=== PATIENT | male | born 1955 | race American Indian/Alaskan Native ===

== ENCOUNTER 2016-08-30 13:51 | Emergency (ER) | payer OTHER ==
--- NOTE | 2016-08-30 15:33 | XRay Report ---
FINAL REPORT EXAM: XR FINGER(S) 2 LT HISTORY: injury/lt finger injury 3rd and 4th digits TECHNIQUE: 3 views of the left third and fourth digits. PRIORS: None FINDINGS: Overlying bandaging. Soft tissue injury on the lateral aspect of the distal third digit. No acute fracture or dislocation seen. Joint spaces are maintained. IMPRESSION: 1. Soft tissue injury of third digit.
--- NOTE | 2016-08-30 16:03 | Emergency Department Report ---
"Upper Extremity - HPI Chief Complaint: Wound/Laceration Stated Complaint: LEFT HAND INJURY Time Seen by Provider: 08/30/16 16:01 Upper Extremity: Left Middle Finger (laceration and injury from hedge |), Left Ring Finger (laceration from hedge clipper) Occurred When: Today Mechanism: Hit with Object Severity: severe (10 out of 10 and throbbing .) Symptoms: Yes Pain with Movement (left middle and fourth finger), Yes Limited Range of Movement (left middle and fourth finger), Yes Swelling (left middle and fourth finger), Yes Bruising/Ecchymosis (left middle finger), Yes Laceration or Abrasion (left middle and fourth finger), No Deformity, No Numbness, No Weakness Other History: Patient here reports that he was using hedge clipper to trim hedges today and he cut his third and fourth finger to left hand. He reports that he is having pain 10 out of 10. Reports that bleeding in and he used pressure dressing to side. Tetanus shot is not up-to-date. Denies any numbness or tingling to side. Denies any radiation of pain from finger to hand , wrist or forearm. Patient is a diabetic and take oral medication. He said his blood sugar this morning was at 126. ED Review of Systems ROS: Stated complaint: LEFT HAND INJURY Other details as noted in HPI Comment: All other systems reviewed and negative Constitutional: denies: chills, fever Respiratory: no symptoms reported Cardiovascular: denies: chest pain, palpitations, edema, syncope Gastrointestinal: denies: nausea, vomiting Musculoskeletal: arthralgia Skin: other (laceration to fingers on left hand) Neurological: denies: weakness, numbness, paresthesias, abnormal gait ED Past Medical Hx - Past Medical History Previous Medical History?: Yes Hx Hypertension: Yes Hx Diabetes: Yes Additional medical history: sinus - Surgical History Past Surgical History?: No - Family History Family history: diabetes, hypertension - Social History Smoking Status: Never Smoker Substance Use Type: None - Medications Home Medications: Home Medications Medication Instructions Recorded Confirmed Last Taken Type Ibuprofen Oral Liqd [Motrin 100 200 mg PO TID PRN 12/10/12 12/10/12 12/10/12 13: 00 History mg/5 ml] Sulfamethoxazole/Trimethoprim 1 each PO BID 12/10/12 12/10/12 12/10/12 08:00 History [Bactrim DS] 1 tablet traMADol [Ultram] 50 mg PO Q6HR PRN 12/10/12 12/10/12 12/10/12 08:00 History Acetaminophen/Codeine [Tylenol 1 tab PO Q6H PRN #15 tab 08/30/16 Unknown Rx /Codeine # 3 tab] Cephalexin [Keflex] 500 mg PO Q8HR #15 cap 08/30/16 Unknown Rx Upper Extremity Exam - Exam General: Vital signs noted. No distress. Alert and acting appropriately. This is 60-year-old male well-nourished well-developed in no acute distress. Head and Torso: Yes HEENT Abnormality (normal exam), Yes Neck Tenderness ( normal exam), Yes Chest/Lungs Abnormality (normal exam), Yes Abdominal Tenderness (normal exam), Yes Back Tenderness (normal exam) Shoulder Exam: Yes Normal Range of Motion in Shoulder, No Shoulder Tenderness, No Clavicle Tenderness, No Shoulder Deformity, No AC Joint Tenderness Arm Exam: No Arm/Humerus Tenderness, No Arm Deformity Elbow: Yes Normal Range of Motion in Elbow, No Elbow Tenderness, No Elbow Deformity Forearm: No Forearm Tenderness, No Forearm Deformity, No Pain with Pronation, No Pain with Supination Wrist: Yes Normal ROM in Wrist, No Wrist Tenderness, No Wrist Deformity, No Snuffbox Tenderness, No Pain with Axial Thumb Compression Hand: Yes Digit Tenderness (tender to palpate to left third and fourth distal phalanx. Swelling and bruising to both sides.), Yes Normal ROM in Digit(s), No Hand Tenderness, No Hand Deformity, No Digit(s) Deformity, No Tendon Dysfunction CMS Exam: Yes Broken Skin (multiple laceration to left third distal phalanx and left fourth distal phalanx), Yes Normal Distal Pulses, Yes Normal Capillary Refill, Yes Normal Distal Sensation ED Course Vital Signs 08/30/16 14:04 Temperature 98.0 F Pulse Rate 108 H Respiratory 18 Rate Blood Pressure 125/87 O2 Sat by Pulse 96 Oximetry Vital Signs 08/30/16 08/30/16 08/30/16 14:04 16:43 18:08 Temperature 98.0 F Pulse Rate 108 H 82 Respiratory 18 18 Rate Blood Pressure 125/87 O2 Sat by Pulse 96 Oximetry Vital Signs 08/30/16 08/30/16 08/30/16 14:04 16:43 18:08 Temperature 98.0 F Pulse Rate 108 H 82 Respiratory 18 18 Rate Blood Pressure 125/87 Blood Pressure [Left] O2 Sat by Pulse 96 Oximetry 08/30/16 18:28 Temperature Pulse Rate 65 Respiratory 18 Rate Blood Pressure Blood Pressure 154/79 [Left] O2 Sat by Pulse 97 Oximetry - Reevaluation(s) Reevaluation #1: 08/30/16 18:16 Patient given Percocet 5/325 2 tablets in emergency room. He was also given Boostrix 0.5 mls to update tetanus. - Laceration /Wound Repair Left Distal Finger Wound Location: upper extremity (left third distal phalanx) Wound Length (cm): 2 Wound's Depth, Shape: into muscle, irregular, flap Wound Explored: clean Irrigated w/ Saline (ccs): 300 Betadine Prep?: Yes Anesthesia: 0.5% Sensorcaine (0.5% Marcaine) Volume Anesthetic (ccs): 2 Wound Debrided: moderate Wound Repaired With: sutures Suture Size/Type: 4:0 (Ethilon) Number of Sutures: 10 Layer Closure?: Yes Deep Layer Suture Size/Type: 5:0 (Vicryl) Number Deep Layer Sutures: 3 Sterile Dressing Applied?: Yes Left Distal Palm Finger Wound Location: upper extremity (left distal third digit at palmar side) Wound Length (cm): 1 Wound's Depth, Shape: superficial, linear Wound Explored: clean Irrigated w/ Saline (ccs): 100 Betadine Prep?: Yes Anesthesia: 0.5% Sensorcaine (0.5% Marcaine) Volume Anesthetic (ccs): 0 (0.5 cc) Wound Debrided: moderate Wound Repaired With: sutures Suture Size/Type: 4:0 (Ethilon) Number of Sutures: 3 Layer Closure?: No Sterile Dressing Applied?: Yes Left Lateral Distal Finger Wound Location: upper extremity (left distal phalanx at Fort digit) Wound Length (cm): 1 (very superficial) Wound's Depth, Shape: superficial, linear Wound Explored: clean Irrigated w/ Saline (ccs): 100 Betadine Prep?: Yes Volume Anesthetic (ccs): 0 Wound Debrided: moderate Wound Repaired With: Steri-strips Number of Sutures: 4 Layer Closure?: No Sterile Dressing Applied?: Yes ED Medical Decision Making - Radiology Data Radiology results: report reviewed X-ray of left hand reveal no bony abnormalities with soft tissue swelling third digit left hand - Medical Decision Making ED course: Patient status post left hand injury at third and fourth digits. Patient with multiple laceration and arthralgia. See procedure note for laceration repair. Patient given Percocet 5/325 mg 2 tablets in emergency room for pain. He was also given Boostrix 0.5 cc intramuscularly for tetanus update. I explained to patient status post laceration repair that he will need to keep dressing on for 48 hours and to keep affected areas clean and dry and return to his primary care physician or emergency room in 7-10 days to have stitches removed. 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 I also explained to him that he needs to keep his blood sugar under control for effective healing. I informed patient on is x-ray results and he voiced understanding. Patient discharged home with his with prescription for Tylenol 3 and Keflex. I instructed him to follow up with his primary care physician in 2-3 days. Critical care attestation.: If time is entered above; I have spent that time in minutes in the direct care of this critically ill patient, excluding procedure time. ED Disposition Clinical Impression: Arthralgia of left hand Laceration of multiple sites of left hand and fingers Qualifiers: Encounter type: initial encounter Qualified Code(s): S61.412A - Laceration without foreign body of left hand, initial encounter; S61.219A - Laceration without foreign body of unspecified finger without damage to nail, initial encounter Injury of left hand Qualifiers: Encounter type: initial encounter Qualified Code(s): S69.92XA - Unspecified injury of left wrist, hand and finger(s), initial encounter Disposition: DC-01 TO HOME OR SELFCARE Is pt being admited?: No Does the pt Need Aspirin: No Condition: Stable Instructions: Suture Care (ED), Finger Laceration (ED), Skin Adhesive Care (ED) , Arthralgia (ED) Additional Instructions: Please call your primary care in mind and schedule appointment for follow-up visit in 2-3 days. Please return she her primary care or emergency room to have stitches removed in 7-10 days. keep affected areas clean and dry Please do not remove dressing in for 48 hours. Keep Blood sugars within normal range to prevent infection Please do not drive or operate heavy machinery while taking Tylenol 3 of this medication will make you drowsy. Prescriptions: Acetaminophen/Codeine [Tylenol /Codeine # 3 tab] 1 tab PO Q6H PRN #15 tab PRN Reason: Pain , Severe (7-10) Cephalexin [Keflex] 500 mg PO Q8HR #15 cap Referrals: PRIMARY CARE, [Primary Care Provider] - 2-3 Days Forms: Work/School Release Form(ED), Accompanied Note"
[2016-08-30] MEDS ORDERED: PERCOCET 5/325 PO ONE (16:20)
[2016-08-30] MEDS ORDERED: BOOSTRIX IM ONE (16:20)
[2016-08-30] MEDS ORDERED: MARCAINE 0.5% INFILTRATI ONE (16:22)
[2016-08-30] MEDS ORDERED: NACL 0.9% IR ONE (16:22)
[2016-08-30 18:29] VITALS: BP 154/79
== END 2016-08-30 18:51 | disposition home or self-care (01) ==
LOC: ED 13:51
DX: S61.215A Laceration without foreign body of left ring finger without damage to nail, initial encounter (principal); S61.213A Laceration without foreign body of left middle finger without damage to nail, initial encounter; I10 Essential (primary) hypertension; E11.9 Type 2 diabetes mellitus without complications; W45.8XXA Other foreign body or object entering through skin, initial encounter; Y93.9 Activity, unspecified; Y92.9 Unspecified place or not applicable; Y99.9 Unspecified external cause status
CPT/HCPCS: 90471; 90715

== ENCOUNTER 2018-11-03 19:17 | Inpatient (IN) | payer OTHER ==
--- NOTE | 2018-11-03 19:45 | Event Note ---
ED Screening Note ED Screening Note: pt presents for N/V/D that began today states that his vomit and diarrhea is "dark purple" no abdominal pain no CP PMHx GERD, DM, HTN, HLD takes a bhavesh 81 mg aspirin, denies any other blood thinner This initial assessment/diagnostic orders/clinical plan/treatment(s) is/are subject to change based on patients health status, clinical progression and re- assessment by fellow clinical providers in the ED. Further treatment and workup at subsequent clinical providers discretion. Patient/guardian urged not to elope from the ED as their condition may be serious if not clinically assessed and managed. Initial orders include: labs will send to the MAIN ED for further eval
[2018-11-03 20:04] LABS: Basophils # (Auto) 0.1 K/mm3 (0.0-0.1); Basophils % (Auto) 0.6 % (0.0-1.8); Eosinophils # (Auto) 0.1 K/mm3 (0.0-0.4); Eosinophils % (Auto) 0.6 % (0.0-4.3); Hematocrit 28.2 % (35.5-45.6); Hemoglobin 9.6 gm/dl (11.8-15.2); Lymphocytes # (Auto) 2.4 K/mm3 (1.2-5.4); Lymphocytes % (Auto) 24.5 % (13.4-35.0); Mean Corpuscular HGB Conc 34 % (32-34); Mean Corpuscular Volume 84 fl (84-94); Monocytes # (Auto) 0.8 K/mm3 (0.0-0.8); Monocytes % (Auto) 8.3 % (0.0-7.3); Platelet Count 202 K/mm3 (140-440); Red Blood Count 3.37 M/mm3 (3.65-5.03); Red Cell Distribution Width 14.7 % (13.2-15.2)
[2018-11-03 20:15] LABS: INR 1.1 (0.87-1.13)
[2018-11-03 20:16] LABS: Partial Thromboplastin Time 24.7 Sec. (24.2-36.6)
[2018-11-03 20:28] LABS: Alanine Aminotransferase 15 units/L (7-56); Albumin 3.8 g/dL (3.9-5); BUN/Creatinine Ratio 38; Blood Urea Nitrogen 53 mg/dL (9-20); Calcium 9.5 mg/dL (8.4-10.2); Hemolysis Index 5
--- NOTE | 2018-11-03 21:11 | Emergency Department Report ---
ED N/V/D HPI - General Chief complaint: Nausea/Vomiting/Diarrhea Stated complaint: VOMITTING, DIARRHEA, BLOODY STOOL/VOMIT, WEAK Time Seen by Provider: 11/03/18 19:42 Source: patient, family Mode of arrival: Ambulatory Limitations: No Limitations - History of Present Illness Initial comments: Patient is a 63-year-old male that presents emergency room with complaints of nausea vomiting diarrhea 3 days. Patient states for 3 days also been having coffee-ground emesis as well as melena. Patient denies abdominal pain. Patient denies fever and chills. Patient denies syncope. Patient complains of lightheaded and weakness. Patient states symptoms are better with rest and worse with movement. Patient states his nausea and vomiting are better with rest and worse with trying to intake food. MD complaint: nausea, vomiting, diarrhea -: Sudden Description of Vomiting: coffee grounds Description of Diarrhea: water, tarry Associated Abdominal Pain: No Severity: severe Consistency: constant Improves with: rest Worsens with: bowel movement, vomiting Associated Symptoms: loss of appetite, malaise, nausea/vomiting, weakness. denies: myalgias, chest pain, cough, diaphoresis, fever/chills, headaches, rash, dysuria, shortness of breath, syncope - Related Data Home Medications Medication Instructions Recorded Confirmed Last Taken Ibuprofen Oral Liqd [Motrin 100 200 mg PO TID PRN 12/10/12 12/10/12 12/10/12 13:00 mg/5 ml] Sulfamethoxazole/Trimethoprim 1 each PO BID 12/10/12 12/10/12 12/10/12 08:00 [Bactrim DS] 1 tablet traMADol [Ultram] 50 mg PO Q6HR PRN 12/10/12 12/10/12 12/10/12 08:00 Previous Rx's Medication Instructions Recorded Last Taken Type Acetaminophen/Codeine [Tylenol 1 tab PO Q6H PRN #15 tab 08/30/16 Unknown Rx /Codeine # 3 tab] cephALEXin [Keflex] 500 mg PO Q8HR #15 cap 08/30/16 Unknown Rx Allergies Allergy/AdvReac Type Severity Reaction Status Date / Time No Known Allergies Allergy Verified 11/03/18 19:21 ED Review of Systems ROS: Stated complaint: VOMITTING, DIARRHEA, BLOODY STOOL/VOMIT, WEAK Other details as noted in HPI Constitutional: weakness. denies: chills, fever Eyes: denies: eye pain, eye discharge, vision change ENT: denies: ear pain, throat pain Respiratory: denies: cough, shortness of breath, wheezing Cardiovascular: denies: chest pain, palpitations Endocrine: no symptoms reported Gastrointestinal: denies: abdominal pain, nausea, diarrhea Genitourinary: denies: urgency, dysuria Musculoskeletal: denies: back pain, joint swelling, arthralgia Skin: denies: rash, lesions Neurological: weakness, vertigo. denies: headache, paresthesias Psychiatric: denies: anxiety, depression Hematological/Lymphatic: denies: easy bleeding, easy bruising ED Past Medical Hx - Past Medical History Previous Medical History?: Yes Hx Hypertension: Yes Hx Diabetes: Yes Hx GERD: Yes Additional medical history: High Cholesterol - Surgical History Past Surgical History?: No - Family History Family history: no significant - Social History Smoking Status: Former Smoker Substance Use Type: None - Medications Home Medications: Home Medications Medication Instructions Recorded Confirmed Last Taken Type Ibuprofen Oral Liqd [Motrin 100 200 mg PO TID PRN 12/10/12 12/10/12 12/10/12 13:00 History mg/5 ml] Sulfamethoxazole/Trimethoprim 1 each PO BID 12/10/12 12/10/12 12/10/12 08:00 History [Bactrim DS] 1 tablet traMADol [Ultram] 50 mg PO Q6HR PRN 12/10/12 12/10/12 12/10/12 08:00 History Acetaminophen/Codeine [Tylenol 1 tab PO Q6H PRN #15 tab 08/30/16 Unknown Rx /Codeine # 3 tab] cephALEXin [Keflex] 500 mg PO Q8HR #15 cap 08/30/16 Unknown Rx ED Physical Exam - General Limitations: No Limitations General appearance: alert, in no apparent distress - Head Head exam: Present: atraumatic, normocephalic - Eye Eye exam: Present: normal appearance - ENT ENT exam: Present: mucous membranes moist - Neck Neck exam: Present: normal inspection - Respiratory Respiratory exam: Present: normal lung sounds bilaterally. Absent: respiratory distress - Cardiovascular Cardiovascular Exam: Present: regular rate, normal rhythm. Absent: systolic murmur, diastolic murmur, rubs, gallop - GI/Abdominal GI/Abdominal exam: Present: soft, normal bowel sounds - Rectal Rectal exam: Present: deferred - Extremities Exam Extremities exam: Present: normal inspection - Back Exam Back exam: Present: normal inspection - Neurological Exam Neurological exam: Present: alert, oriented X3 - Psychiatric Psychiatric exam: Present: normal affect, normal mood - Skin Skin exam: Present: warm, dry, intact, normal color. Absent: rash ED Course Vital Signs 11/03/18 11/03/18 11/03/18 19:23 19:43 21:12 Temperature 98.7 F 98.7 F Pulse Rate 129 H 125 H Respiratory 16 18 14 Rate Blood Pressure 105/54 105/54 Blood Pressure [Right] O2 Sat by Pulse 98 98 Oximetry 11/03/18 11/03/18 11/03/18 21:15 21:19 21:30 Temperature 98.1 F Pulse Rate 109 H 112 H 104 H Respiratory 17 15 18 Rate Blood Pressure 86/43 83/38 Blood Pressure 86/43 [Right] O2 Sat by Pulse 96 97 96 Oximetry 11/03/18 11/03/18 11/03/18 21:45 22:00 22:15 Temperature Pulse Rate 98 H 97 H 96 H Respiratory 15 22 23 Rate Blood Pressure 75/30 97/48 98/50 Blood Pressure [Right] O2 Sat by Pulse 100 98 92 Oximetry 11/03/18 11/03/18 11/03/18 22:31 22:45 23:00 Temperature Pulse Rate 102 H 91 H 96 H Respiratory 22 20 15 Rate Blood Pressure 97/58 109/52 110/50 Blood Pressure [Right] O2 Sat by Pulse 99 98 98 Oximetry 11/03/18 11/03/18 11/03/18 23:15 23:31 23:45 Temperature Pulse Rate 90 99 H 95 H Respiratory 21 19 16 Rate Blood Pressure 100/49 123/60 116/48 Blood Pressure [Right] O2 Sat by Pulse 98 99 72 L Oximetry - Reevaluation(s) Reevaluation #1: I discussed all results with patient. I discussed plan of care with patient. Patient will be admitted to the hospitalist service. 11/03/18 21:23 Reevaluation #2: Patient noted to be hypotensive. Patient was given fluids. . we will repeat CBC. I discussed all results patient. 11/03/18 21:53 0 Reevaluation #3: Blood pressures currently 97/50. Patient's blood pressure is improved with fluids. Discussed all results to patient. Discussed plan of care with patient. Patient will be admitted to the hospitalist service. Patient agrees with admission. 11/03/18 22:12 Reevaluation #4: He states she's feeling better. Patient's current blood pressure is 110/60. 11/03/18 23:13 - Consultations Consultation #1: GI paged 11/03/18 21:[address] Cline. Dr. Cline wants patient started on a PPI drip and nothing by mouth after midnight and admitted to the hospitalist service. 11/03/18 21:20 Consultation #2: Hospitalist consult for admission. Hospitalist to admit patient. 11/03/18 22:06 ED Medical Decision Making - Lab Data Result diagrams: 11/03/18 22:25 11/03/18 19:49 - Medical Decision Making Patient is a 63-year-old mellitus emergency room with complaints of nausea vomiting and diarrhea and coffee-ground emesis and melena. Patient brought over GI bleed. Patient also found to have hypotension and given fluids and his blood pressure improved. Patient typed and crossed and had a repeat CBC in the ER. Patient's labs essentially unremarkable except for anemia and elevated BUNs. Patient given fluids. Patient's blood pressure responded well to fluids. Patient admitted to the hospitalist service. GI consultation and recommendations received. - Differential Diagnosis GI bleed. Nausea vomiting and diarrhea. Melena Critical Care Time: Yes Critical care attestation.: If time is entered above; I have spent that time in minutes in the direct care of this critically ill patient, excluding procedure time. Critical Care Time: 35 minutes ED Disposition Clinical Impression: Nausea vomiting and diarrhea, Dehydration, Coffee ground emesis GI bleed Qualifiers: GI bleed type/associated pathology: unspecified gastrointestinal hemorrhage type Qualified Code(s): K92.2 - Gastrointestinal hemorrhage, unspecified Hypotension Qualifiers: Hypotension type: unspecified hypotension type Qualified Code(s): I95.9 - Hypotension, unspecified Disposition: OP ADMIT IP TO THIS HOSP Is pt being admited?: Yes Does the pt Need Aspirin: No Condition: Critical Time of Disposition: :
[2018-11-03] MEDS ORDERED: NACL 0.9% 1000 ML 1,000 ML IV ONE ×2 (21:20→22:42)
[2018-11-03] MEDS: PROTONIX 80 MG in NACL 0.9% 100 ML IV SCH (21:51)
[2018-11-03] MEDS ORDERED: TYLENOL PO PRN (22:38)
[2018-11-03] MEDS ORDERED: SODIUM CHLORIDE FLUSH SYRINGE 10 ML IV PRN (22:38)
[2018-11-03] MEDS ORDERED: MORPHINE IV PRN (22:38)
[2018-11-03] MEDS ORDERED: ZOFRAN IV PRN (22:38)
[2018-11-03 22:41] LABS: Hematocrit 22.3 % (35.5-45.6); Hemoglobin 7.6 gm/dl (11.8-15.2); Mean Corpuscular HGB Conc 34 % (32-34); Mean Corpuscular Volume 84 fl (84-94); Platelet Count 154 K/mm3 (140-440); Red Blood Count 2.67 M/mm3 (3.65-5.03); Red Cell Distribution Width 14.5 % (13.2-15.2)
[2018-11-03] MEDS ORDERED: NACL 0.9% 1000 ML 1,000 ML IV SCH (23:00)
--- NOTE | 2018-11-03 23:03 | History and Physical Report ---
History of Present Illness Date of examination: 11/03/18 Chief complaint: Nausea and vomiting History of present illness: Patient is a 63-year-old -[place] male with history of hypertension and DM2 who presented to the ED on account of 3 days history of nausea with projectile vomiting. He stated that few hours after eating some fast food, he started having severe vomiting which subsequently became bloody. He has associated passage of dark watery stool, headaches and lightheadedness. He denies abdominal pain, dysuria or frequency. No chest pain, shortness of breath, palpitation, fever, chills, syncope or loss of consciousness. No prior history of presenting complaint. Past History Past Medical History: diabetes, hypertension, hyperlipidemia Past Surgical History: No surgical history Social history: smoking (patient has a remote history of cigarette smoking. He quit in 1999. He denies alcohol or illicit drug use) Family history: diabetes (father), other (mother was diagnosed with cancer of the stomach in her 80's) Medications and Allergies Allergies Allergy/AdvReac Type Severity Reaction Status Date / Time No Known Allergies Allergy Verified 11/03/18 19:21 Home Medications Medication Instructions Recorded Confirmed Last Taken Type Ibuprofen Oral Liqd [Motrin 100 200 mg PO TID PRN 12/10/12 12/10/12 12/10/12 13:00 History mg/5 ml] Sulfamethoxazole/Trimethoprim 1 each PO BID 12/10/12 12/10/12 12/10/12 08:00 History [Bactrim DS] 1 tablet traMADol [Ultram] 50 mg PO Q6HR PRN 12/10/12 12/10/12 12/10/12 08:00 History Acetaminophen/Codeine [Tylenol 1 tab PO Q6H PRN #15 tab 08/30/16 Unknown Rx /Codeine # 3 tab] cephALEXin [Keflex] 500 mg PO Q8HR #15 cap 08/30/16 Unknown Rx Active Meds: Active Medications Acetaminophen (Tylenol) 650 mg PO Q4H PRN PRN Reason: Pain MILD(1-3)/Fever >100.5/ROMAN Pantoprazole Sodium 80 mg/ (Sodium Chloride) 100 mls @ 10 mls/hr IV DIRECT SOLOMON Last Admin: 11/03/18 21:51 Dose: 8 mg/hr, 10 mls/hr Documented by: Morphine Sulfate (Morphine) 2 mg IV Q4H PRN PRN Reason: Pain, Moderate (4-6) Ondansetron HCl (Zofran) 4 mg IV Q8H PRN PRN Reason: Nausea And Vomiting Sodium Chloride (Sodium Chloride Flush Syringe 10 Ml) 10 ml IV BID SOLOMON Sodium Chloride (Sodium Chloride Flush Syringe 10 Ml) 10 ml IV PRN PRN PRN Reason: LINE FLUSH Review of Systems All systems: negative (all other systems reviewed with the patient and are negative, unless otherwise stated) Exam - Constitutional Vitals: Temp Pulse Resp BP Pulse Ox 98.1 F 102 H 22 97/58 99 11/03/18 21:19 11/03/18 22:31 11/03/18 22:31 11/03/18 22:31 11/03/18 22:31 General appearance: Present: no acute distress, well-nourished - EENT Eyes: Present: PERRL, EOM intact ENT: hearing intact, clear oral mucosa - Neck Neck: Present: supple, normal ROM - Respiratory Respiratory effort: normal Respiratory: bilateral: CTA - Cardiovascular Rhythm: regular (with tachycardia) Heart Sounds: Present: S1 & S2. Absent: rub, click - Extremities Extremities: pulses symmetrical Extremity abnormal: edema (trace edema noted in bilateral lower extremities) Peripheral Pulses: within normal limits - Abdominal General gastrointestinal: Present: soft, non-tender, non-distended, normal bowel sounds Male genitourinary: Present: deferred - Integumentary Integumentary: Present: clear, warm, dry - Musculoskeletal Musculoskeletal: gait normal, strength equal bilaterally - Psychiatric Psychiatric: appropriate mood/affect, intact judgment & insight - Neurologic Neurologic: CNII-XII intact, moves all extremities Results - Labs CBC & Chem 7: 11/03/18 22:25 11/03/18 19:49 Labs: Laboratory Last Values WBC 9.1 K/mm3 (4.5-11.0) 11/03/18 22:25 RBC 2.67 M/mm3 (3.65-5.03) L 11/03/18 22:25 Hgb 7.6 gm/dl (11.8-15.2) L 11/03/18 22:25 Hct 22.3 % (35.5-45.6) L 11/03/18 22:25 MCV 84 fl (84-94) 11/03/18 22:25 MCH 29 pg (28-32) 11/03/18 22:25 MCHC 34 % (32-34) 11/03/18 22:25 RDW 14.5 % (13.2-15.2) 11/03/18 22:25 Plt Count 154 K/mm3 (140-440) 11/03/18 22:25 Lymph % (Auto) 24.5 % (13.4-35.0) 11/03/18 19:49 [place] % (Auto) 8.3 % (0.0-7.3) H 11/03/18 19:49 Eos % (Auto) 0.6 % (0.0-4.3) 11/03/18 19:49 Baso % (Auto) 0.6 % (0.0-1.8) 11/03/18 19:49 Lymph # 2.4 K/mm3 (1.2-5.4) 11/03/18 19:49 [place] # 0.8 K/mm3 (0.0-0.8) 11/03/18 19:49 Eos # 0.1 K/mm3 (0.0-0.4) 11/03/18 19:49 Baso # 0.1 K/mm3 (0.0-0.1) 11/03/18 19:49 Seg Neutrophils % 66.0 % (40.0-70.0) 11/03/18 19:49 Seg Neutrophils # 6.5 K/mm3 (1.8-7.7) 11/03/18 19:49 PT 13.9 Sec. (12.2-14.9) 11/03/18 19:49 INR 1.10 (0.87-1.13) 11/03/18 19:49 APTT 24.7 Sec. (24.2-36.6) 11/03/18 19:49 Sodium 140 mmol/L (137-145) 11/03/18 19:49 Potassium 4.9 mmol/L (3.6-5.0) 11/03/18 19:49 Chloride 105.3 mmol/L (98-107) 11/03/18 19:49 Carbon Dioxide 19 mmol/L (22-30) L 11/03/18 19:49 21 mmol/L 11/03/18 19:49 BUN 53 mg/dL (9-20) H 11/03/18 19:49 1.4 mg/dL (0.8-1.5) 11/03/18 19:49 Estimated GFR > 60 ml/min 11/03/18 19:49 38 % 11/03/18 19:49 Glucose 144 mg/dL (75-100) H 11/03/18 19:49 POC Glucose 151 (70-105) H 11/03/18 19:54 Calcium 9.5 mg/dL (8.4-10.2) 11/03/18 19:49 0.30 mg/dL (0.1-1.2) 11/03/18 19:49 AST 10 units/L (5-40) 11/03/18 19:49 ALT 15 units/L (7-56) 11/03/18 19:49 68 units/L (35-129) 11/03/18 19:49 < 0.010 ng/mL (0.00-0.029) 11/03/18 19:49 6.1 g/dL (6.3-8.2) L 11/03/18 19:49 3.8 g/dL (3.9-5) L 11/03/18 19:49 1.7 % 11/03/18 19:49 23 units/L (13-60) 11/03/18 19:49 Assessment and Plan Assessment and plan: Upper GI bleed -Probably 2/2 Ginny-Bella tear -On IV Protonix drip -We'll monitor H&H closely and transfuse pt as needed -GI consulted in the ED Hypotension due to hypovolemia -BP responsive to IV fluid bolus -We'll continue maintenance IV fluid and monitor BP N/V and diarrhea -Probably due to food poisoning -On antiemetics and IV fluid Acute metabolic acidosis -On IV fluid, will monitor bicarbonate level DM2 -Stable -On SSI DVT prophylaxis with SCD Disposition: Patient will be admitted in inpatient status to the stepdown unit for close monitoring Time spent: 40 minutes
[2018-11-03] MEDS ORDERED: D50W (25GM) Syringe IV PRN (23:06)
[2018-11-03] MEDS ORDERED: NACL 0.9% 1000 ML 1,000 ML ONE ×2 (23:11→23:32)
[2018-11-04] MEDS: HumaLOG SUB-Q SCH ×4 (01:12→18:00)
[2018-11-04 04:36] LABS: Hematocrit 22.4 % (35.5-45.6); Hemoglobin 7.4 gm/dl (11.8-15.2)
[2018-11-04 04:49] LABS: BUN/Creatinine Ratio 36; Blood Urea Nitrogen 43 mg/dL (9-20); Calcium 8.1 mg/dL (8.4-10.2); Hemolysis Index 1
--- NOTE | 2018-11-04 07:54 | Progress Note ---
Assessment and Plan Upper GI bleed -Probably 2/2 Ginny-Bella tear -On IV Protonix drip -H/H dropped from 9.6 /28.2 to 7.4/22.4 Will transfuse 1 unit of PRBC -GI consulted in the ED Hypotension due to hypovolemia -BP responsive to IV fluid bolus -We'll continue maintenance IV fluid and monitor BP N/V and diarrhea -Probably due to food poisoning -On antiemetics and IV fluids Acute metabolic acidosis -On IV fluid, will monitor bicarbonate level DM2 -Stable -On SSI DVT prophylaxis with SCD Subjective Date of service: 11/04/18 Principal diagnosis: Uper GI bleed Interval history: Upper GI bleed---less vomiting.Sx better Objective - Constitutional Vitals: Vital Signs - 12hr 11/03/18 11/03/18 11/03/18 21:12 21:15 21:19 Temperature 98.1 F Pulse Rate 109 H 112 H Respiratory 14 17 15 Rate Blood Pressure 86/43 Blood Pressure 86/43 [Right] O2 Sat by Pulse 96 97 Oximetry 11/03/18 11/03/18 11/03/18 21:30 21:45 22:00 Temperature Pulse Rate 104 H 98 H 97 H Respiratory 18 15 22 Rate Blood Pressure 83/38 75/30 97/48 Blood Pressure [Right] O2 Sat by Pulse 96 100 98 Oximetry 11/03/18 11/03/18 11/03/18 22:15 22:31 22:45 Temperature Pulse Rate 96 H 102 H 91 H Respiratory 23 22 20 Rate Blood Pressure 98/50 97/58 109/52 Blood Pressure [Right] O2 Sat by Pulse 92 99 98 Oximetry 11/03/18 11/03/18 11/03/18 23:00 23:15 23:31 Temperature Pulse Rate 96 H 90 99 H Respiratory 15 21 19 Rate Blood Pressure 110/50 100/49 123/60 Blood Pressure [Right] O2 Sat by Pulse 98 98 99 Oximetry 11/03/18 11/03/18 11/03/18 23:40 23:45 23:47 Temperature Pulse Rate 100 H 95 H 96 H Respiratory 22 16 20 Rate Blood Pressure 100/49 116/48 116/48 Blood Pressure [Right] O2 Sat by Pulse 97 72 L 97 Oximetry 11/04/18 11/04/18 11/04/18 00:01 00:15 00:31 Temperature Pulse Rate 101 H 98 H 94 H Respiratory 19 24 22 Rate Blood Pressure 132/66 137/69 112/51 Blood Pressure [Right] O2 Sat by Pulse 100 99 99 Oximetry 11/04/18 11/04/18 11/04/18 00:45 01:00 01:15 Temperature Pulse Rate 93 H 93 H 91 H Respiratory 20 18 20 Rate Blood Pressure 109/52 116/60 116/60 Blood Pressure [Right] O2 Sat by Pulse 100 97 96 Oximetry 11/04/18 11/04/18 11/04/18 01:30 01:45 02:00 Temperature Pulse Rate 88 95 H 89 Respiratory 16 19 16 Rate Blood Pressure 117/10 117/47 128/43 Blood Pressure [Right] O2 Sat by Pulse 98 96 97 Oximetry 11/04/18 11/04/18 11/04/18 02:15 02:31 02:45 Temperature Pulse Rate 95 H 93 H 93 H Respiratory 23 21 18 Rate Blood Pressure 145/72 129/59 Blood Pressure [Right] O2 Sat by Pulse 99 99 Oximetry 11/04/18 11/04/18 11/04/18 03:14 03:29 03:31 Temperature Pulse Rate 93 H 90 93 H Respiratory 18 22 22 Rate Blood Pressure 114/58 Blood Pressure 115/62 114/58 [Right] O2 Sat by Pulse 98 98 Oximetry 11/04/18 11/04/18 11/04/18 04:31 05:00 05:31 Temperature Pulse Rate 95 H 93 H 97 H Respiratory 14 17 18 Rate Blood Pressure 101/60 101/58 101/60 Blood Pressure [Right] O2 Sat by Pulse 96 97 96 Oximetry 11/04/18 11/04/18 06:00 07:05 Temperature 98.2 F Pulse Rate 91 H Respiratory 20 Rate Blood Pressure 105/49 Blood Pressure [Right] O2 Sat by Pulse 97 Oximetry General appearance: Present: no acute distress, well-nourished - EENT Eyes: PERRL, EOM intact ENT: hearing intact, clear oral mucosa Ears: bilateral: normal - Neck Neck: supple, normal ROM - Respiratory Respiratory effort: normal Respiratory: bilateral: CTA - Breasts Breasts: normal - Cardiovascular Heart rate: 78 Rhythm: regular Heart Sounds: Present: S1 & S2. Absent: gallop, rub Extremities: pulses intact, No edema, normal color, Full ROM - Gastrointestinal General gastrointestinal: Present: soft, non-tender, non-distended, normal bowel sounds - Genitourinary Male genitourinary: normal - Integumentary Integumentary: clear, warm, dry - Musculoskeletal Musculoskeletal: 1, strength equal bilaterally - Neurologic Neurologic: moves all extremities - Psychiatric Psychiatric: memory intact, appropriate mood/affect, intact judgment & insight - Allied health notes Allied health notes reviewed: nursing, case management - Labs CBC & Chem 7: 11/04/18 03:28 11/04/18 03:28 Labs: Abnormal lab results 11/03/18 11/03/18 11/03/18 Range/Units 19:49 19:49 19:54 RBC 3.37 L (3.65-5.03) M/mm3 Hgb 9.6 L (11.8-15.2) gm/dl Hct 28.2 L (35.5-45.6) % [place] % (Auto) 8.3 H (0.0-7.3) % Chloride (98-107) mmol/L Carbon Dioxide 19 L (22-30) mmol/L BUN 53 H (9-20) mg/dL Glucose 144 H (75-100) mg/dL POC Glucose 151 H (70-105) Calcium (8.4-10.2) mg/dL Total Protein 6.1 L (6.3-8.2) g/dL Albumin 3.8 L (3.9-5) g/dL 11/03/18 11/04/18 11/04/18 Range/Units 22:25 03:28 03:28 RBC 2.67 L (3.65-5.03) M/mm3 Hgb 7.6 L 7.4 L (11.8-15.2) gm/dl Hct 22.3 L 22.4 L (35.5-45.6) % [place] % (Auto) (0.0-7.3) % Chloride 109.3 H (98-107) mmol/L Carbon Dioxide (22-30) mmol/L BUN 43 H (9-20) mg/dL Glucose 122 H (75-100) mg/dL POC Glucose (70-105) Calcium 8.1 L (8.4-10.2) mg/dL Total Protein (6.3-8.2) g/dL Albumin (3.9-5) g/dL 11/04/18 Range/Units 06:39 RBC (3.65-5.03) M/mm3 Hgb (11.8-15.2) gm/dl Hct (35.5-45.6) % [place] % (Auto) (0.0-7.3) % Chloride (98-107) mmol/L Carbon Dioxide (22-30) mmol/L BUN (9-20) mg/dL Glucose (75-100) mg/dL POC Glucose 135 H (70-105) Calcium (8.4-10.2) mg/dL Total Protein (6.3-8.2) g/dL Albumin (3.9-5) g/dL
[2018-11-04] MEDS ORDERED: NACL 0.9% 500 ML 500 ML IV NR (08:30)
[2018-11-04] MEDS ORDERED: PHENYLEPHRINE/NS Syringe 1,000 MCG/10 ML IV ONE (10:00)
--- NOTE | 2018-11-04 10:57 | Gastroenterology Consultation ---
<ASHLEY RILEY - Last Filed: 11/04/18 10:59> History of Present Illness - Reason for Consult Consult date: 11/04/18 GI bleed Requesting physician: JOSE CHÁVEZ III - History of Present Illness Patient is a 63 y/o male with with PMH of DM, HTN, and HLD on whom GI has been consulted for GI bleed. Patient reports developing acute onset of severe projectile N/V and diarrhea this past Thursday after eating [employer] chicken for dinner the prvious night and [employer] sausage biscuit for breakfast. He states initially emesis was non-bloody then became dark bloody in color with subsequent episodes, along with dark bloody stool. No hematocheiza or active signs of bleeding this am. N/V and diarrhea now improved with no BM or vomiting this am. Lightheadedness also resolved following resolution of hypotension s/p IV fluid bolus. Denies fever, CP, SOB, wt loss, abdominal pain, dysphagia, or constipation. Has no hx of prior GI bleeding, PUD, or liver disease. No alcohol or substance abuse. Takes daily 81mg ASA at home and occasional Aleve (~1- 2/month). No previous EGD. No abdominal surgeries. Fhx of GI cancer per chart review, with patient's mother with stomach CA. Past History Past Medical History: diabetes, hypertension, hyperlipidemia Past Surgical History: No surgical history Social history: smoking (patient has a remote history of cigarette smoking. He quit in 1999. He denies alcohol or illicit drug use) Family history: diabetes (father), other (mother was diagnosed with cancer of the stomach in her 80's) Medications and Allergies Allergies Allergy/AdvReac Type Severity Reaction Status Date / Time No Known Allergies Allergy Verified 11/03/18 19:21 Home Medications Medication Instructions Recorded Confirmed Last Taken Type Ibuprofen Oral Liqd [Motrin 100 200 mg PO TID PRN 12/10/12 11/04/18 12/10/12 13:00 History mg/5 ml] Sulfamethoxazole/Trimethoprim 1 each PO BID 12/10/12 11/04/18 12/10/12 08:00 His tory [Bactrim DS] 1 tablet traMADol [Ultram] 50 mg PO Q6HR PRN 12/10/12 11/04/18 12/10/12 08:00 History Acetaminophen/Codeine [Tylenol 1 tab PO Q6H PRN #15 tab 08/30/16 11/04/18 Unknown Rx /Codeine # 3 tab] cephALEXin [Keflex] 500 mg PO Q8HR #15 cap 08/30/16 11/04/18 Unknown Rx Amlodipine-Olmesartan 5-40 mg 1 tab PO QDAY 11/04/18 11/04/18 11/03/18 History Aspirin EC [Halfprin EC] 81 mg PO QDAY 11/04/18 11/04/18 11/03/18 History Atorvastatin [Lipitor] 40 mg PO QDAY 11/04/18 11/04/18 11/03/18 History Kombiglyze XR 2.5-1,000 mg 1 tab PO BID 11/04/18 11/04/18 11/03/18 08:30 History Active Meds: Active Medications Acetaminophen (Tylenol) 650 mg PO Q4H PRN PRN Reason: Pain MILD(1-3)/Fever >100.5/ROMAN Dextrose (D50w (25gm) Syringe) 50 ml IV PRN PRN PRN Reason: Hypoglycemia Pantoprazole Sodium 80 mg/ (Sodium Chloride) 100 mls @ 10 mls/hr IV DIRECT SOLOMON Last Admin: 11/03/18 21:51 Dose: 8 mg/hr, 10 mls/hr Documented by: Sodium Chloride (Nacl 0.9% 1000 Ml) 1,000 mls @ 125 mls/hr IV DIRECT SOLOMON Last Admin: 11/03/18 23:15 Dose: 125 mls/hr Documented by: Sodium Chloride (Nacl 0.9% 500 Ml) 500 mls @ 0 mls/hr IV ONCE NR Stop: 11/04/18 19:00 Insulin Human Lispro (Humalog) 0 unit SUB-Q Q6HR SOLOMON; Protocol Last Admin: 11/04/18 06:33 Dose: Not Given Documented by: Morphine Sulfate (Morphine) 2 mg IV Q4H PRN PRN Reason: Pain, Moderate (4-6) Ondansetron HCl (Zofran) 4 mg IV Q8H PRN PRN Reason: Nausea And Vomiting Sodium Chloride (Sodium Chloride Flush Syringe 10 Ml) 10 ml IV BID SOLOMON Sodium Chloride (Sodium Chloride Flush Syringe 10 Ml) 10 ml IV PRN PRN PRN Reason: LINE FLUSH medications reviewed/updated as required Review of Systems - Review of Systems All systems: negative Gastrointestinal: nausea, vomiting, diarrhea, coffee ground emesis, melena Exam - Constitutional Vital Signs: Temp Pulse Resp BP Pulse Ox 97.3 F L 88 22 100/62 99 11/04/18 10:15 11/04/18 10:41 11/04/18 10:41 11/04/18 09:41 11/04/18 10:41 General appearance: no acute distress - EENT Eyes: PERRL, EOM intact ENT: hearing intact - Respiratory Respiratory effort: normal - Cardiovascular Rhythm: regular - Gastrointestinal General gastrointestinal: Present: soft, non-tender, non-distended, normal bowel sounds - Neurologic Neurological: alert and oriented x3 - Labs CBC & Chem 7: 11/04/18 03:28 11/04/18 03:28 Lab Results: Laboratory Results - last 24 hr 11/03/18 11/03/18 11/03/18 19:49 19:49 19:49 WBC 9.9 RBC 3.37 L Hgb 9.6 L Hct 28.2 L MCV 84 MCH 28 MCHC 34 RDW 14.7 Plt Count 202 Lymph % (Auto) 24.5 [place] % (Auto) 8.3 H Eos % (Auto) 0.6 Baso % (Auto) 0.6 Lymph # 2.4 [place] # 0.8 Eos # 0.1 Baso # 0.1 Seg Neutrophils % 66.0 Seg Neutrophils # 6.5 PT 13.9 INR 1.10 APTT 24.7 Sodium 140 Potassium 4.9 Chloride 105.3 Carbon Dioxide 19 L Anion Gap 21 BUN 53 H Creatinine 1.4 Estimated GFR > 60 BUN/Creatinine Ratio 38 Glucose 144 H POC Glucose Calcium 9.5 Total Bilirubin 0.30 AST 10 ALT 15 Alkaline Phosphatase 68 Troponin T < 0.010 Total Protein 6.1 L Albumin 3.8 L Albumin/Globulin Ratio 1.7 Lipase 23 Blood Type Antibody Screen Crossmatch 11/03/18 11/03/18 11/03/18 19:54 22:25 22:45 WBC 9.1 RBC 2.67 L Hgb 7.6 L Hct 22.3 L MCV 84 MCH 29 MCHC 34 RDW 14.5 Plt Count 154 Lymph % (Auto) [place] % (Auto) Eos % (Auto) Baso % (Auto) Lymph # [place] # Eos # Baso # Seg Neutrophils % Seg Neutrophils # PT INR APTT Sodium Potassium Chloride Carbon Dioxide Anion Gap BUN Creatinine Estimated GFR BUN/Creatinine Ratio Glucose POC Glucose 151 H Calcium Total Bilirubin AST ALT Alkaline Phosphatase Troponin T Total Protein Albumin Albumin/Globulin Ratio Lipase Blood Type O POSITIVE Antibody Screen Negative Crossmatch See Detail 11/04/18 11/04/18 11/04/18 03:28 03:28 06:39 WBC RBC Hgb 7.4 L Hct 22.4 L MCV MCH MCHC RDW Plt Count Lymph % (Auto) [place] % (Auto) Eos % (Auto) Baso % (Auto) Lymph # [place] # Eos # Baso # Seg Neutrophils % Seg Neutrophils # PT INR APTT Sodium 140 Potassium 4.4 Chloride 109.3 H Carbon Dioxide 22 Anion Gap 13 BUN 43 H Creatinine 1.2 Estimated GFR > 60 BUN/Creatinine Ratio 36 Glucose 122 H POC Glucose 135 H Calcium 8.1 L Total Bilirubin AST ALT Alkaline Phosphatase Troponin T Total Protein Albumin Albumin/Globulin Ratio Lipase Blood Type Antibody Screen Crossmatch Assessment and Plan 1.UGIB 2.hypotension-improved 3.N/V and diarrhea-resolved -afebrile -WBC WNL -INR 1.10 -BUN elevated (43 from 53 on admission); LFTs WNL -H/H 7.4/22.4-stable -continue to monitor H/H and transfuse as needed -no active signs of bleeding this am- currently HD stable -etiology-likely M-W tear given history vs other -will schedule for EGD today for further evaluation -Keep NPO -continue protonix drip -continue supportive care -will follow <KARRI VALLADARES - Last Filed: 11/04/18 13:53> Medications and Allergies Active Meds: Active Medications Acetaminophen (Tylenol) 650 mg PO Q4H PRN PRN Reason: Pain MILD(1-3)/Fever >100.5/ROMAN Dextrose (D50w (25gm) Syringe) 50 ml IV PRN PRN PRN Reason: Hypoglycemia Pantoprazole Sodium 80 mg/ (Sodium Chloride) 100 mls @ 10 mls/hr IV DIRECT SOLOMON Last Admin: 11/03/18 21:51 Dose: 8 mg/hr, 10 mls/hr Documented by: Sodium Chloride (Nacl 0.9% 1000 Ml) 1,000 mls @ 125 mls/hr IV DIRECT SOLOMON Last Admin: 11/03/18 23:15 Dose: 125 mls/hr Documented by: Sodium Chloride (Nacl 0.9% 500 Ml) 500 mls @ 0 mls/hr IV ONCE NR Stop: 11/04/18 19:00 Last Admin: 11/04/18 11:07 Dose: 100 mls/hr Documented by: Insulin Human Lispro (Humalog) 0 unit SUB-Q Q6HR SOLOMON; Protocol Last Admin: 11/04/18 13:13 Dose: Not Given Documented by: Morphine Sulfate (Morphine) 2 mg IV Q4H PRN PRN Reason: Pain, Moderate (4-6) Ondansetron HCl (Zofran) 4 mg IV Q8H PRN PRN Reason: Nausea And Vomiting Sodium Chloride (Sodium Chloride Flush Syringe 10 Ml) 10 ml IV BID [facility] Last Admin: 11/04/18 12:12 Dose: Not Given Documented by: Sodium Chloride (Sodium Chloride Flush Syringe 10 Ml) 10 ml IV PRN PRN PRN Reason: LINE FLUSH Exam - Constitutional Vital Signs: Temp Pulse Resp BP Pulse Ox 97.5 F L 79 17 124/70 97 11/04/18 12:49 11/04/18 13:00 11/04/18 13:00 11/04/18 13:00 11/04/18 13:00 - Labs CBC & Chem 7: 11/04/18 03:28 11/04/18 03:28 Lab Results: Laboratory Results - last 24 hr 11/03/18 11/03/18 11/03/18 19:49 19:49 19:49 WBC 9.9 RBC 3.37 L Hgb 9.6 L Hct 28.2 L MCV 84 MCH 28 MCHC 34 RDW 14.7 Plt Count 202 Lymph % (Auto) 24.5 [place] % (Auto) 8.3 H Eos % (Auto) 0.6 Baso % (Auto) 0.6 Lymph # 2.4 [place] # 0.8 Eos # 0.1 Baso # 0.1 Seg Neutrophils % 66.0 Seg Neutrophils # 6.5 PT 13.9 INR 1.10 APTT 24.7 Sodium 140 Potassium 4.9 Chloride 105.3 Carbon Dioxide 19 L Anion Gap 21 BUN 53 H Creatinine 1.4 Estimated GFR > 60 BUN/Creatinine Ratio 38 Glucose 144 H POC Glucose Calcium 9.5 Total Bilirubin 0.30 AST 10 ALT 15 Alkaline Phosphatase 68 Troponin T < 0.010 Total Protein 6.1 L Albumin 3.8 L Albumin/Globulin Ratio 1.7 Lipase 23 Blood Type Antibody Screen Crossmatch 11/03/18 11/03/18 11/03/18 19:54 22:25 22:45 WBC 9.1 RBC 2.67 L Hgb 7.6 L Hct 22.3 L MCV 84 MCH 29 MCHC 34 RDW 14.5 Plt Count 154 Lymph % (Auto) [place] % (Auto) Eos % (Auto) Baso % (Auto) Lymph # [place] # Eos # Baso # Seg Neutrophils % Seg Neutrophils # PT INR APTT Sodium Potassium Chloride Carbon Dioxide Anion Gap BUN Creatinine Estimated GFR BUN/Creatinine Ratio Glucose POC Glucose 151 H Calcium Total Bilirubin AST ALT Alkaline Phosphatase Troponin T Total Protein Albumin Albumin/Globulin Ratio Lipase Blood Type O POSITIVE Antibody Screen Negative Crossmatch See Detail 11/04/18 11/04/18 11/04/18 03:28 03:28 06:39 WBC RBC Hgb 7.4 L Hct 22.4 L MCV MCH MCHC RDW Plt Count Lymph % (Auto) [place] % (Auto) Eos % (Auto) Baso % (Auto) Lymph # [place] # Eos # Baso # Seg Neutrophils % Seg Neutrophils # PT INR APTT Sodium 140 Potassium 4.4 Chloride 109.3 H Carbon Dioxide 22 Anion Gap 13 BUN 43 H Creatinine 1.2 Estimated GFR > 60 BUN/Creatinine Ratio 36 Glucose 122 H POC Glucose 135 H Calcium 8.1 L Total Bilirubin AST ALT Alkaline Phosphatase Troponin T Total Protein Albumin Albumin/Globulin Ratio Lipase Blood Type Antibody Screen Crossmatch Assessment and Plan Patient seen and examined. Agree with note above. Plan for EGD. n/v/diarrhea resolved suggestive of gastroenteritis episode
[2018-11-04] MEDS: SODIUM CHLORIDE FLUSH SYRINGE 10 ML IV SCH ×2 (12:12→21:08)
[2018-11-04] MEDS ORDERED: DIPRIVAN 10 MG/ML IV ONE ×3 (14:03→14:48)
--- NOTE | 2018-11-04 14:40 | Anesthesia Day of Surgery ---
Anesthesia Day of Surgery - Day of Surgery Patient Examined: Yes Patient H&P Reviewed: Yes Patient is NPO: Yes
--- NOTE | 2018-11-04 14:40 | Anesthesia Consultation ---
Anesthesia Consult and Med Hx Date of service: 11/04/18 - Airway Anesthetic Teeth Evaluation: Partials ROM Head & Neck: Adequate Mental/Hyoid Distance: Adequate Mallampati Class: Class III Intubation Access Assessment: Possibly Difficult - Pulmonary Exam CTA: Yes - Cardiac Exam Cardiac Exam: RRR - Pre-Operative Health Status ASA Pre-Surgery Classification: ASA3 Proposed Anesthetic Plan: MAC - Pulmonary Hx Smoking: Yes (former smoker) Hx Respiratory Symptoms: No - Cardiovascular System Hx Hypertension: Yes Hx Heart Attack/AMI: No Hx Cardia Arrhythmia: No - Central Nervous System Hx Seizures: No CVA: No - Gastrointestinal Hx Gastroesophageal Reflux Disease: No - Endocrine Hx Renal Disease: No Hx Liver Disease: No Hx Non-Insulin Dependent Diabetes: Yes Hx Thyroid Disease: No - Hematic Hx Anemia: Yes (2/2 GI bleed) - Other Systems Hx Obesity: Yes - Additional Comments Anesthesia Medical History Comments: No hx anesthetic complications. HD stable, pRBCs transfusing.
--- NOTE | 2018-11-04 14:54 | Operative Report ---
Operative Report Operative Report: Esophagogastroduodenoscopy Procedure Note with Control of bleeding Date of procedure: 11/04/2018 Endoscopist: Gutierrez White Pre-op diagnosis: Upper GI bleed Post-op diagnosis: Two duodenal ulcers with heme spot and oozing of blood s/p clip placement; Beth gonzales tear Anesthesia: MAC Complications: No immediate complications Estimated blood loss: minimal Procedure: After consent was obtained, the patient was placed in the left lateral decubitus position. The olympus endoscope was inserted into the patient's mouth under direct vision, and advanced into the 2nd portion of the duodenum without difficulty. The patient tolerated the procedure well. The views of the mucosa were good. Patient's vital signs were monitored continuously throughout the procedure. Findings: There was a beth gonzales tear at the GE junction. There was a small heme spot but no active bleeding. There was erythematous mucosa throughout the gastric body. Biopsies were obtained to rule out H pylori. There were two superificial ulcers (~3 mm in size) in the duodenal sweep. Each ulcer had heme spots with oozing of blood. Three clips were placed with no active bleeding at the end of the procedure. Impression: 1. Duodenal ulcers with bleeding stigmata s/p clip placement 2. Beth gonzales tear 3. Gastritis. Biopsied to rule out H pylori. Recommendations: -cont IV PPI drip until tomorrow. if no signs of further bleeding, can switch to BID dosing tomorrow -trend labs and transfuse as needed to keep hgb > 7 -okay for clear liquid diet today -avoid nsaid's
[2018-11-04] MEDS ORDERED: NACL 0.9% 1000 ML 1,000 ML IV SCH (16:00)
[2018-11-04] MEDS: PROTONIX 80 MG in NACL 0.9% 100 ML IV SCH (21:09)
[2018-11-05] MEDS: HumaLOG SUB-Q SCH ×4 (01:00→18:21)
[2018-11-05] MEDS: PROTONIX 80 MG in NACL 0.9% 100 ML IV SCH (09:18)
[2018-11-05] MEDS: SODIUM CHLORIDE FLUSH SYRINGE 10 ML IV SCH ×2 (09:22→22:11)
[2018-11-05 09:51] LABS: Hematocrit 28.3 % (35.5-45.6); Hemoglobin 9.9 gm/dl (11.8-15.2)
--- NOTE | 2018-11-05 12:55 | Gastroenterology Progress Note ---
<ASHLEY RILEY - Last Filed: 11/05/18 12:48> Assessment and Plan 1.UGIB 2.N/V and diarrhea-resolved -H/H 9.9/28.3- trending up s/p 1 unit PRBCs yesterday -continue to monitor H/H and transfuse as needed to keep hgb >7 -BM x 1 overnight with dark stool (sequela?)-no active signs of bleeding this am. No abd pain or N/V. -s/p EGD yesterday that showed Ginny Bella tear at GE junction with small heme spot but no active bleeding, gastritis, and two ulcers (~3mm) in the duodenal sweep with bleeding stigmata (clips x 3 placed) -bx results pending- f/u in clinic -tolerating clears- okay to advance diet to full liquids and then soft if tolerated -continue PPI -avoid NSAIDs -continue to trend labs and supportive care -if no further bleeding and labs stable in am, okay to d/c home on PPI BID with f/u in clinic in 1-2 weeks - Subjective Date of service: 11/05/18 Principal diagnosis: Uper GI bleed Interval history: Patient resting in bed w/o acute distress. Reports BM overnight with dark stool but no active signs of bleeding this am. Denies abd pain or N/V. Tolerating clears. Objective - Constitutional Vitals: Temp Pulse Resp BP Pulse Ox 98.2 F 109 H 24 126/64 96 11/05/18 08:00 11/05/18 09:11 11/05/18 09:11 11/05/18 09:11 11/05/18 09:11 General appearance: no acute distress - Respiratory Respiratory effort: normal - Cardiovascular Rhythm: other (tachycardia) - Gastrointestinal General gastrointestinal: Present: soft, non-tender, non-distended, normal bowel sounds - Neurologic Neurological: alert and oriented x3 - Labs CBC & Chem 7: 11/05/18 09:39 11/04/18 03:28 Labs: Laboratory Results - last 24 hr 11/03/18 11/04/18 11/05/18 22:45 23:33 05:31 Hgb Hct POC Glucose 167 H 127 H Crossmatch See Detail 11/05/18 11/05/18 09:39 11:08 Hgb 9.9 L Hct 28.3 L POC Glucose 211 H Crossmatch <KARRI VALLADARES - Last Filed: 11/05/18 16:08> Assessment and Plan Patient seen and examined. Agree with note above. Objective - Constitutional Vitals: Temp Pulse Resp BP Pulse Ox 98.2 F 78 17 108/58 100 11/05/18 08:00 11/05/18 14:11 11/05/18 14:11 11/05/18 14:11 11/05/18 14:11 - Labs CBC & Chem 7: 11/05/18 09:39 11/04/18 03:28 Labs: Laboratory Results - last 24 hr 11/04/18 11/05/18 11/05/18 23:33 05:31 09:39 Hgb 9.9 L Hct 28.3 L POC Glucose 167 H 127 H 11/05/18 11:08 Hgb Hct POC Glucose 211 H
--- NOTE | 2018-11-05 15:59 | Progress Note ---
Assessment and Plan Upper GI bleed -Probably 2/2 Ginny-Bella tear -On IV Protonix drip -H/H Stable s/p EGD yesterday that showed Ginny Bella tear at GE junction with small heme spot but no active bleeding, gastritis, and two ulcers (~3mm) in the duodenal sweep with bleeding stigmata (clips x 3 placed) -bx results pending- f/u in clinic -tolerating clears- okay to advance diet to full liquids and then soft if tolerated -continue PPI -avoid NSAIDs -continue to trend labs and supportive care -if no further bleeding and labs stable in am, okay to d/c home on PPI BID with f/u with GI - Hypotension due to hypovolemia -BP responsive to IV fluid bolus -We'll continue maintenance IV fluid and monitor BP N/V and diarrhea -Probably due to food poisoning -On antiemetics and IV fluids Acute metabolic acidosis -On IV fluid, will monitor bicarbonate level DM2 -Stable -On SSI DVT prophylaxis with SCD Subjective Date of service: 11/05/18 Principal diagnosis: Uper GI bleed Interval history: Upper GI bleed---less vomiting.Sx better Objective - Constitutional Vitals: Vital Signs - 12hr 11/05/18 11/05/18 11/05/18 04:00 04:11 04:21 Temperature 98.4 F Pulse Rate 79 82 82 Pulse Rate [ 77 From Monitor] Respiratory 18 18 16 Rate Blood Pressure 129/68 129/68 122/63 O2 Sat by Pulse 96 96 96 Oximetry 11/05/18 11/05/18 11/05/18 04:31 04:41 04:51 Temperature Pulse Rate 79 82 82 Pulse Rate [ From Monitor] Respiratory 16 17 17 Rate Blood Pressure 122/63 122/63 122/63 O2 Sat by Pulse 95 95 94 Oximetry 11/05/18 11/05/18 11/05/18 05:00 05:11 05:21 Temperature Pulse Rate 77 90 89 Pulse Rate [ From Monitor] Respiratory 16 17 17 Rate Blood Pressure 134/65 134/65 134/65 O2 Sat by Pulse 94 95 94 Oximetry 11/05/18 11/05/18 11/05/18 05:31 05:41 05:51 Temperature Pulse Rate 77 79 81 Pulse Rate [ From Monitor] Respiratory 18 18 17 Rate Blood Pressure 134/65 134/65 134/65 O2 Sat by Pulse 97 96 96 Oximetry 11/05/18 11/05/18 11/05/18 06:01 06:11 06:21 Temperature Pulse Rate 74 77 78 Pulse Rate [ From Monitor] Respiratory 18 18 18 Rate Blood Pressure 110/55 110/55 110/55 O2 Sat by Pulse 96 96 96 Oximetry 11/05/18 11/05/18 11/05/18 06:31 06:41 06:51 Temperature Pulse Rate 88 99 H 83 Pulse Rate [ From Monitor] Respiratory 17 17 17 Rate Blood Pressure 110/55 110/55 110/55 O2 Sat by Pulse 95 96 97 Oximetry 11/05/18 11/05/18 11/05/18 07:00 07:11 07:21 Temperature Pulse Rate 80 84 81 Pulse Rate [ From Monitor] Respiratory 18 19 16 Rate Blood Pressure 116/54 116/54 116/54 O2 Sat by Pulse 97 97 98 Oximetry 11/05/18 11/05/18 11/05/18 07:31 07:40 07:50 Temperature Pulse Rate 87 88 89 Pulse Rate [ From Monitor] Respiratory 15 17 19 Rate Blood Pressure 116/54 116/54 116/54 O2 Sat by Pulse 96 97 97 Oximetry 11/05/18 11/05/18 11/05/18 08:00 08:11 08:21 Temperature 98.2 F Pulse Rate 95 H 87 92 H Pulse Rate [ 86 From Monitor] Respiratory 20 19 13 Rate Blood Pressure 138/72 116/54 116/54 O2 Sat by Pulse 97 95 96 Oximetry 11/05/18 11/05/18 11/05/18 08:31 08:41 08:51 Temperature Pulse Rate 93 H 94 H 90 Pulse Rate [ From Monitor] Respiratory 15 15 15 Rate Blood Pressure 116/54 116/54 116/54 O2 Sat by Pulse 96 97 98 Oximetry 11/05/18 11/05/18 11/05/18 09:00 09:11 09:21 Temperature Pulse Rate 82 109 H 116 H Pulse Rate [ From Monitor] Respiratory 21 24 28 H Rate Blood Pressure 126/64 126/64 126/64 O2 Sat by Pulse 96 96 80 L Oximetry 11/05/18 11/05/18 11/05/18 09:31 09:41 09:51 Temperature Pulse Rate 130 H 90 86 Pulse Rate [ From Monitor] Respiratory 21 26 H 23 Rate Blood Pressure 126/64 126/64 126/64 O2 Sat by Pulse 82 L 96 99 Oximetry 11/05/18 11/05/18 11/05/18 10:00 10:11 10:21 Temperature Pulse Rate 82 74 87 Pulse Rate [ From Monitor] Respiratory 22 14 21 Rate Blood Pressure 123/69 123/69 123/69 O2 Sat by Pulse 99 99 99 Oximetry 11/05/18 11/05/18 11/05/18 10:31 10:41 10:51 Temperature Pulse Rate 92 H 83 79 Pulse Rate [ From Monitor] Respiratory 15 19 17 Rate Blood Pressure 123/69 123/69 123/69 O2 Sat by Pulse 98 98 98 Oximetry 11/05/18 11/05/18 11/05/18 11:00 11:11 11:21 Temperature Pulse Rate 80 79 77 Pulse Rate [ From Monitor] Respiratory 23 15 14 Rate Blood Pressure 127/67 127/67 127/67 O2 Sat by Pulse 99 98 97 Oximetry 11/05/18 11/05/18 11/05/18 11:31 11:41 11:51 Temperature Pulse Rate 81 78 77 Pulse Rate [ From Monitor] Respiratory 15 20 18 Rate Blood Pressure 127/67 127/67 127/67 O2 Sat by Pulse 98 99 100 Oximetry 11/05/18 11/05/18 11/05/18 12:00 12:11 12:21 Temperature Pulse Rate 72 81 84 Pulse Rate [ From Monitor] Respiratory 18 13 20 Rate Blood Pressure 114/69 114/69 114/69 O2 Sat by Pulse 100 99 100 Oximetry 11/05/18 11/05/18 11/05/18 12:31 12:41 12:50 Temperature Pulse Rate 83 82 90 Pulse Rate [ From Monitor] Respiratory 12 16 10 L Rate Blood Pressure 114/69 114/69 114/69 O2 Sat by Pulse 100 99 98 Oximetry 11/05/18 11/05/18 11/05/18 13:00 13:11 13:21 Temperature Pulse Rate 79 87 82 Pulse Rate [ From Monitor] Respiratory 16 13 17 Rate Blood Pressure 117/60 117/60 117/60 O2 Sat by Pulse 99 96 100 Oximetry 11/05/18 11/05/18 11/05/18 13:31 13:41 13:51 Temperature Pulse Rate 83 87 87 Pulse Rate [ From Monitor] Respiratory 23 13 17 Rate Blood Pressure 117/60 117/60 117/60 O2 Sat by Pulse 99 98 100 Oximetry 11/05/18 11/05/18 14:00 14:11 Temperature Pulse Rate 74 78 Pulse Rate [ From Monitor] Respiratory 17 17 Rate Blood Pressure 108/58 108/58 O2 Sat by Pulse 98 100 Oximetry General appearance: Present: no acute distress, well-nourished - EENT Eyes: PERRL, EOM intact ENT: hearing intact, clear oral mucosa Ears: bilateral: normal - Neck Neck: supple, normal ROM - Respiratory Respiratory effort: normal Respiratory: bilateral: CTA - Breasts Breasts: normal - Cardiovascular Heart rate: 78 Rhythm: regular Heart Sounds: Present: S1 & S2. Absent: gallop, rub Extremities: pulses intact, No edema, normal color, Full ROM - Gastrointestinal General gastrointestinal: Present: soft, non-tender, non-distended, normal bowel sounds - Genitourinary Male genitourinary: normal - Integumentary Integumentary: clear, warm, dry - Musculoskeletal Musculoskeletal: 1, strength equal bilaterally - Neurologic Neurologic: moves all extremities - Psychiatric Psychiatric: memory intact, appropriate mood/affect, intact judgment & insight - Labs CBC & Chem 7: 11/05/18 09:39 11/04/18 03:28 Labs: Abnormal lab results 11/04/18 11/05/18 11/05/18 Range/Units 23:33 05:31 09:39 Hgb 9.9 L (11.8-15.2) gm/dl Hct 28.3 L (35.5-45.6) % POC Glucose 167 H 127 H (70-105) 11/05/18 Range/Units 11:08 Hgb (11.8-15.2) gm/dl Hct (35.5-45.6) % POC Glucose 211 H (70-105)
[2018-11-05] MEDS: PROTONIX IV SCH (22:11)
[2018-11-06] MEDS: HumaLOG SUB-Q SCH ×3 (00:09→12:41)
[2018-11-06 05:15] LABS: Basophils % (Auto) 0.5 % (0.0-1.8); Eosinophils # (Auto) 0.3 K/mm3 (0.0-0.4); Eosinophils % (Auto) 3.9 % (0.0-4.3); Hematocrit 28.5 % (35.5-45.6); Hemoglobin 9.9 gm/dl (11.8-15.2); Lymphocytes # (Auto) 1.8 K/mm3 (1.2-5.4); Lymphocytes % (Auto) 22.9 % (13.4-35.0); Mean Corpuscular HGB Conc 35 % (32-34); Mean Corpuscular Volume 84 fl (84-94); Monocytes # (Auto) 0.8 K/mm3 (0.0-0.8); Monocytes % (Auto) 9.6 % (0.0-7.3); Platelet Count 178 K/mm3 (140-440); Red Blood Count 3.38 M/mm3 (3.65-5.03); Red Cell Distribution Width 14.6 % (13.2-15.2)
[2018-11-06 05:39] LABS: BUN/Creatinine Ratio 11; Blood Urea Nitrogen 10 mg/dL (9-20); Calcium 8.8 mg/dL (8.4-10.2)
[2018-11-06 05:40] LABS: Alanine Aminotransferase 20 units/L (7-56); Albumin 3.7 g/dL (3.9-5); Hemolysis Index 1
--- NOTE | 2018-11-06 09:20 | Gastroenterology Progress Note ---
Assessment and Plan 1. Duodenal ulcers - EGD with bleeding stigmata s/p clip placement 2. Ginny gonzales tear -H/H stable and no signs of further bleeding since procedure. okay to d/c from gi stand point. okay for aspirin, but d/c other nsaid's. start iron replacement therapy. f/u in GI clinic in 2-3 weeks. will s/o, please call as needed Subjective Date of service: 11/06/18 Principal diagnosis: Uper GI bleed Interval history: no events overnight; no further bleeding episodes. tolerating po Objective - Constitutional Vitals: Temp Pulse Resp BP Pulse Ox 98.0 F 85 18 107/55 95 11/06/18 06:25 11/06/18 06:25 11/06/18 06:25 11/06/18 06:25 11/06/18 06:25 General appearance: no acute distress - Respiratory Respiratory effort: normal Respiratory: bilateral: CTA - Cardiovascular Rhythm: regular Heart Sounds: Present: S1 & S2 - Gastrointestinal General gastrointestinal: Present: soft, non-tender, non-distended - Neurologic Neurological: alert and oriented x3 - Psychiatric Psychiatric: appropriate mood/affect - Labs CBC & Chem 7: 11/06/18 04:11 11/06/18 04:11 Labs: Laboratory Results - last 24 hr 11/05/18 11/05/18 11/05/18 09:39 11:08 17:57 WBC RBC Hgb 9.9 L Hct 28.3 L MCV MCH MCHC RDW Plt Count Lymph % (Auto) [place] % (Auto) Eos % (Auto) Baso % (Auto) Lymph # [place] # Eos # Baso # Seg Neutrophils % Seg Neutrophils # Sodium Potassium Chloride Carbon Dioxide Anion Gap BUN Creatinine Estimated GFR BUN/Creatinine Ratio Glucose POC Glucose 211 H 108 H Calcium Total Bilirubin AST ALT Alkaline Phosphatase Total Protein Albumin Albumin/Globulin Ratio 11/05/18 11/06/18 11/06/18 23:57 04:11 04:11 WBC 8.0 RBC 3.38 L Hgb 9.9 L Hct 28.5 L MCV 84 MCH 29 MCHC 35 H RDW 14.6 Plt Count 178 Lymph % (Auto) 22.9 [place] % (Auto) 9.6 H Eos % (Auto) 3.9 Baso % (Auto) 0.5 Lymph # 1.8 [place] # 0.8 Eos # 0.3 Baso # 0.0 Seg Neutrophils % 63.1 Seg Neutrophils # 5.1 Sodium 144 Potassium 3.8 Chloride 106.7 Carbon Dioxide 29 D Anion Gap 12 BUN 10 Creatinine 0.9 Estimated GFR > 60 BUN/Creatinine Ratio 11 Glucose 177 H POC Glucose 269 H Calcium 8.8 Total Bilirubin 0.20 AST 14 ALT 20 Alkaline Phosphatase 85 Total Protein 6.2 L Albumin 3.7 L Albumin/Globulin Ratio 1.5 11/06/18 06:08 WBC RBC Hgb Hct MCV MCH MCHC RDW Plt Count Lymph % (Auto) [place] % (Auto) Eos % (Auto) Baso % (Auto) Lymph # [place] # Eos # Baso # Seg Neutrophils % Seg Neutrophils # Sodium Potassium Chloride Carbon Dioxide Anion Gap BUN Creatinine Estimated GFR BUN/Creatinine Ratio Glucose POC Glucose 172 H Calcium Total Bilirubin AST ALT Alkaline Phosphatase Total Protein Albumin Albumin/Globulin Ratio
[2018-11-06] MEDS: PROTONIX IV SCH (10:11)
[2018-11-06] MEDS: SODIUM CHLORIDE FLUSH SYRINGE 10 ML IV SCH (10:11)
[2018-11-06 11:41] VITALS: BP 117/69
--- NOTE | 2018-11-06 12:33 | Discharge Summary ---
Providers - Providers Date of Admission: 11/03/18 22:38 Date of discharge: 11/06/18 Attending physician: KATHY WILEY 11/03/18 21:20 Consult to Physician [CONS] Routine Comment: Dr. Villarreal spoke with Dr. Cline @ [id number] Consulting Provider: POONAM CLINE Physician Instructions: Reason For Exam: gi bleed Primary care physician: MYRIAM GIMENEZ Hospitalization Condition: Critical Procedures: EGD---[facility] Hospital course: Patient is a 63-year-old -[place] male with history of hypertension and DM2 who presented to the ED on account of 3 days history of nausea with projectile vomiting. He stated that few hours after eating some fast food, he started having severe vomiting which subsequently became bloody. He has associated passage of dark watery stool, headaches and lightheadedness. He denies abdominal pain, dysuria or frequency. No chest pain, shortness of breath, palpitation, fever, chills, syncope or loss of consciousness. No prior history of presenting complaint. Upper GI bleed -Probably 2/2 Ginny-Bella tear -On IV Protonix drip -H/H Stable s/p EGD that showed Ginny Bella tear at GE junction with small heme spot but no active bleeding, gastritis, and two ulcers (~3mm) in the duodenal sweep with bleeding stigmata (clips x 3 placed) -bx results pending- f/u in clinic -tolerating clears- okay to advance diet to full liquids and then soft if tolerated -continue PPI -avoid NSAIDs -continue to trend labs and supportive care -if no further bleeding and labs stable in am, okay to d/c home on PPI BID with f/u with GI - Hypotension due to hypovolemia Corrected N/V and diarrhea -Probably due to food poisoning Corrected Acute metabolic acidosis Corrected DM2 -Stable -On SSI Disposition: DC-01 TO HOME OR SELFCARE Core Measure Documentation - Palliative Care Palliative Care/ Comfort Measures: Not Applicable - Core Measures Any of the following diagnoses?: none Exam - Constitutional Vitals: Temp Pulse Resp BP Pulse Ox 98.2 F 81 20 117/69 96 11/06/18 11:32 11/06/18 11:32 11/06/18 11:32 11/06/18 11:32 11/06/18 11:32 General appearance: Present: no acute distress, well-nourished - EENT Eyes: Present: PERRL ENT: hearing intact, clear oral mucosa - Neck Neck: Present: supple, normal ROM - Respiratory Respiratory effort: normal Respiratory: bilateral: CTA - Cardiovascular Heart rate: 78 Rhythm: regular Heart Sounds: Present: S1 & S2. Absent: rub, click - Extremities Extremities: no ischemia, pulses intact, pulses symmetrical, No edema Peripheral Pulses: within normal limits - Abdominal General gastrointestinal: Present: soft, non-tender, non-distended, normal bowel sounds Male genitourinary: Present: normal - Integumentary Integumentary: Present: clear, warm, dry - Musculoskeletal Musculoskeletal: gait normal, strength equal bilaterally - Psychiatric Psychiatric: appropriate mood/affect, intact judgment & insight - Neurologic Neurologic: CNII-XII intact, moves all extremities - Allied Health Allied health notes reviewed: nursing, case management Plan Activity: no restrictions Diet: regular Follow up with: MYRIAM GIMENEZ MD [Primary Care Provider] - 3-5 Days KARRI VALLADARES MD [Staff Physician] - 7 Days
[2018-11-06] MEDS ORDERED: PROTONIX PO SCH (22:00)
== END 2018-11-06 15:15 | disposition home or self-care (01) | DRG 369 ==
LOC: ED 19:17 → IMCU 22:38 → CC1 11-04 08:20 → IMCU 11-04 21:20 → 3A 11-05 18:18
PROVIDERS: ADMIT Internal Medicine; ATTEND Internal Medicine
PROC: 30233N1 Transfusion of Nonautologous Red Blood Cells into Peripheral Vein, Percutaneous Approach (ICD-10-PCS; principal; 2018-11-04)
PROC: 0DB68ZX Excision of Stomach, Via Natural or Artificial Opening Endoscopic, Diagnostic (ICD-10-PCS; 2018-11-04)
PROC: 0W3P8ZZ Control Bleeding in Gastrointestinal Tract, Via Natural or Artificial Opening Endoscopic (ICD-10-PCS; 2018-11-04)
DX: K22.6 Gastro-esophageal laceration-hemorrhage syndrome (principal); E87.2 Acidosis; T62.8X1A Toxic effect of other specified noxious substances eaten as food, accidental (unintentional), initial encounter; K26.4 Chronic or unspecified duodenal ulcer with hemorrhage; E86.9 Volume depletion, unspecified; R19.7 Diarrhea, unspecified; E11.9 Type 2 diabetes mellitus without complications; E78.00 Pure hypercholesterolemia, unspecified; K29.70 Gastritis, unspecified, without bleeding; R11.2 Nausea with vomiting, unspecified; E86.1 Hypovolemia; I95.9 Hypotension, unspecified; E78.5 Hyperlipidemia, unspecified; I10 Essential (primary) hypertension; Z83.3 Family history of diabetes mellitus; Z80.0 Family history of malignant neoplasm of digestive organs; Z79.899 Other long term (current) drug therapy; Z68.33 Body mass index [BMI] 33.0-33.9, adult; Y92.098 Other place in other non-institutional residence as the place of occurrence of the external cause; Z79.84 Long term (current) use of oral hypoglycemic drugs
CPT/HCPCS: 36415; 36430; 80048; 80053; 82962; 83690; 84484; 85014; 85018; 85025; 85027; 85610; 85730; 86850; 86900; 86901; 86920; 88305; 88342; 93005; 93010; G0378; C9113; J1815; J2370; J2704; J7030; J7040; P9016